=== PATIENT | male | born 1995 | race Caucasian/White ===

== ENCOUNTER 2021-01-07 12:43 | Emergency (ER) | payer OTHER, SELFPAY ==
[2021-01-07 13:23] VITALS: BP 146/91; PULSE 76; RESP 14; TEMP 36.7; O2SAT 99; BMI 23.7
[2021-01-07 14:29] LABS: COVID19 - ADMIT (NP swab/PCR) Negative (Negative)
--- NOTE | 2021-01-07 14:40 | ED.RECABL ---
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 He has no symptoms. 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 Related Data Allergies Allergy/AdvReac Type Severity Reaction Status Date / Time No Known Drug Allergies Allergy Verified 01/07/21 13:23 Review of Systems Cardiovascular Comments: No chest pain Respiratory Comments: No shortness of breath Gastrointestinal Comments: No GI symptoms Patient History Medical History Healthy adult Social History Smoking Status: Never smoker Smoking Status: Never smoker alcohol intake frequency: holidays/special occasions only Substance Use Type: does not use Exam Initial Vital Signs Initial Vital Signs: Vital Signs Temperature 98.0 F 01/07/21 13:23 Pulse Rate 76 01/07/21 13:23 Respiratory Rate 14 01/07/21 13:23 Blood Pressure 146/91 H 01/07/21 13:23 Pulse Oximetry 99 01/07/21 13:23 HENMT Head: normal to inspection and normocephalic Resp Effort & Inspection: normal respiratory effort Cardio Rate: regular rate Neuro General: patient alert, patient awake, patient oriented x3 and moves all extremities Extrem General: normal to inspection Course Orders Ordered: ED Orders 01/07/21 13:25 COVID19 - ADMIT ([facility] swab/PCR) Stat Vital Signs Vital signs: Vital Signs - 8 hr 01/07/21 13:23 Temperature 98.0 F Pulse Rate 76 Respiratory Rate 14 Blood Pressure 146/91 H Pulse Oximetry 99 MDM - Recheck/Abnormal Lab/Rx Lab Data Labs: Lab Results 01/07/21 Range/Units 13:25 SARS-CoV-2 (PCR) Negative (Negative) MDM Narrative Medical decision making narrative: His COVID test was negative. He was given a copy of this. Discharged home with return precautions. Discharge Plan Departure Patient Disposition: Home Clinical Impression: Encounter for laboratory testing for COVID-19 virus Activity Restrictions/Additional Instructions: Your COVID test today was negative. Continue to follow CDC guidelines with regard to wearing masks and social distancing. Contact your medical department for follow-up. Return to the emergency department for any new or worsening symptoms
== END 2021-01-07 14:48 | disposition home or self-care (01) ==
PROVIDERS: Emergency Provider Emergency Medicine
DX: Z20.822 Contact with and (suspected) exposure to COVID-19 (principal)
CPT/HCPCS: 87635; 99281; C9803